=== PATIENT | male | born 1995 | race Caucasian/White ===

== ENCOUNTER 2017-04-27 15:03 | Emergency (ER) | payer OTHER ==
[~2017-04-27] VITALS: Ht 165.1 cm; Wt 77.1 kg
[2017-04-27 15:07] VITALS: BP 161/111; PULSE 84; RESP 17; TEMP 97.9; O2SAT 97
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
--- NOTE | 2017-04-27 15:47 | NUR ---
Jasmin SHED BOSS at the bedside evaluating Pt. Currently awaiting new order.
[2017-04-27] MEDS ORDERED: LORazepam 1 MG TABLET PO ONE ×2 (16:15→17:00)
--- NOTE | 2017-04-27 16:26 | NUR ---
Pt awake. pt stated he still feel anxious, Anti anxiety medication administered as ordered. Informed Pt to push the call light if Pt needs assistance with anything. Pt verbalized understanding. will continue to monitor.
--- NOTE | 2017-04-27 17:27 | NUR ---
Patient given written and verbal discharge instructions and verbalizes understanding. ER MD discussed with patient the results and treatment provided. Patient in stable condition. ID arm band removed. IV catheter removed intact and dressing applied, no active bleeding. Rx of ativan given. Patient educated on pain management and to follow up with PMD. Pain Scale 0/10. Opportunity for questions provided and answered.
[2017-04-27 17:31] VITALS: BP 119/56; PULSE 87; RESP 16; TEMP 98.9; O2SAT 99
== END 2017-04-27 17:24 | disposition home or self-care (01) ==
LOC: SED 15:04
DX: F41.9 Anxiety disorder, unspecified (principal); F43.10 Post-traumatic stress disorder, unspecified; X58.XXXA Exposure to other specified factors, initial encounter; Y93.89 Activity, other specified; Y92.89 Other specified places as the place of occurrence of the external cause; Y99.8 Other external cause status
CPT/HCPCS: 93005; 99283